=== PATIENT | male | born 1960 | race Caucasian/White ===

== ENCOUNTER 2020-03-14 17:34 | Emergency (ER) | payer SELFPAY ==
--- NOTE | 2020-03-14 17:42 | ED_ITS ---
HPI - CPR General Chief Complaint: Cardiac Arrest/CPR Stated Complaint: no pulse Time Seen by Provider: 03/14/20 17:42 Source: EMS Mode of arrival: EMS History of Present Illness HPI narrative: Patient with no known past medical history been complaining of mid chest pain for last 3 days son was at home who saw him around 15:00 complaining of heartburn, when he went back at 1600 found him in the bed unresponsive without any spontaneous respiration within few minutes veneer repairer machine came and CPR started when EMS came reaming machine operator showed asystole patient was intubated IO was placed 5 rounds of epinephrine was given according to protocol without any cardiac activity back there was no signs of trauma no prior known cardiac history but patient has not seen a physician for long time MD complaint: found unresponsive Related Data Allergies Allergy/AdvReac Type Severity Reaction Status Date / Time No Known Allergies Allergy Verified 03/14/20 20:20 Review of Systems Review of Systems: Yes Unobtainable due to mental condition PMFSH Social History Social History Advance Directives: No Advance Directives Information Provided: No Physical Exam Vital Signs: Patient is thin built nonresponsive pupils fixed and dilated No spontaneous respiration ET tube is in place 7.5 mm 25 cm at lip line good air entry with Ambu bag Cardiac no spontaneous cardiac activity. Abdomen soft Extremities no signs of injury Skin body warm no rashes or ecchymosis. Neuro. Pupils fixed dilated Course Course Course Narrative: Patient came with CPR for asystole for about 1 hour 5 rounds of epinephrine was given by the EMS without any cardiac activity achieved, patient was intubated. No signs of trauma. Bedside cardiac ultrasound showed no cardiac activity no pericardial effusion. Patient pronounced at 17:37. cigarette making examiner called not a medical case, certified medical dosimetrist name Maddie allen, case No : [id number] MDM - Cardiac Arrest/CPR Differential Diagnosis Differential diagnosis: Likely acute myocardial infarction and cardiac arrest Lab Data Labs: Lab Results 03/14/20 Range/Units 17:37 POC Glucose 51 L* (60-115) mg/dL Discharge Plan Discharge Clinical Impression: Cardiac arrest Patient Disposition: Discharge Date/Time: 03/14/20 19:57 Date/Time: 03/14/20 17:37
--- NOTE | 2020-03-14 18:43 | PC.NURSE ---
[facility] CALLED AT [phone], ANSWERING SERVICE TOOK INFO FOR CALLBACK.
[2020-03-14 20:07] LABS: Glucose, Whole Blood 51 mg/dL (60-115)
== END 2020-03-14 19:57 | disposition expired ==
PROVIDERS: Emergency Provider Internal Medicine
DX: I46.9 Cardiac arrest, cause unspecified (principal)
CPT/HCPCS: 82947